=== PATIENT | female | born 1945 | race Caucasian/White ===

== ENCOUNTER 2017-10-01 11:03 | Outpatient (CLI) | payer MEDICARE | END 2017-10-01 11:04 | disposition home or self-care (01) | LOC: BICMAMMO 11:03 | PROVIDERS: ATTEND Family Medicine | DX: Z12.31 Encounter for screening mammogram for malignant neoplasm of breast (principal); Z85.89 Personal history of malignant neoplasm of other organs and systems | CPT/HCPCS: 77063; 77067 ==

== ENCOUNTER 2022-04-24 13:44 | Outpatient (CLI) | payer OTHER | END 2022-04-24 13:45 | disposition home or self-care (01) | LOC: BICMAMMO 13:44 | PROVIDERS: ATTEND Family Medicine | DX: Z12.31 Encounter for screening mammogram for malignant neoplasm of breast (principal); Z13.820 Encounter for screening for osteoporosis; M85.89 Other specified disorders of bone density and structure, multiple sites; Z78.0 Asymptomatic menopausal state; Z85.89 Personal history of malignant neoplasm of other organs and systems; Z91.89 Other specified personal risk factors, not elsewhere classified | CPT/HCPCS: 77063; 77067; 77080 ==

== ENCOUNTER 2022-06-18 10:45 | Inpatient (IN) | payer OTHER ==
[2022-06-18 12:59] LABS: #Basophils 0.1 10x3/uL (0.0-0.2); #Eosinphils 0.1 10x3/uL (0.0-0.5); #Monocytes 0.6 10x3/uL (0.0-1.1); #Neutrophils 3.6 10x3/uL (1.5-8.4); %Basophils 0.9 % (0.0-2.0); %Eosinophils 1.8 % (0.0-6.0); %Lymphocytes 42.5 % (18.0-47.0); %Monocytes 7.4 % (0.0-10.0); %Neutrophils 47.1 % (40.0-75.0); Mean Corpuscular HGB CONC 33.6 g/dL (32.0-36.0); Mean Corpuscular Hemoglobin 31.4 pg (27.0-33.0); Mean Corpuscular Volume 93.5 fl (81.6-98.3); Mean Platelet Volume 10.1 fl (7.4-10.4); Platelet Count 249 10x3/uL (150-450); Red Blood Cell (RBC) Count 4.46 10x6/uL (3.90-5.03); White Blood Cell (WBC) Count 7.7 10x3/uL (3.5-10.5)
[2022-06-18 13:25] LABS: Anion Gap 14 mmol/L (10-20); BUN (Urea Nitrogen) 10 mg/dL (9.8-20.1); Calc. Creatinine Clearance 0 mL/min (70-130); Calcium 9.2 mg/dL (7.8-10.44); Carbon Dioxide 26 mmol/L (23-31); Chloride 103 mmol/L (98-107); Estimated GFR 58; Glucose 90 mg/dL (83-110); Potassium 4.6 mmol/L (3.5-5.1); Sodium 138 mmol/L (136-145)
[2022-06-22] MEDS ORDERED: Albumin 25% 100 ML ONE (06:11)
[2022-06-22] MEDS ORDERED: fentaNYL PF 100 MCG/2 ML SYRINGE ONE (06:22)
[2022-06-22] MEDS ORDERED: Midazolam HCl 5 mg/5 ml Vial ONE (06:22)
[2022-06-22] MEDS ORDERED: niCARdipine 25 MG/10 ML VIAL ONE (06:23)
[2022-06-22] MEDS ORDERED: Phenylephrine 10 MG/ML VIAL ONE (06:23)
[2022-06-22 06:41] LABS: SARS-CoV-2 NAA Rapid Test Not Detected (NotDetected)
[2022-06-22] MEDS ORDERED: Heparin 10,000 UNITS/1 ML VIAL 30,000 UNITS in Sodium Chloride 0.9% 1,000 ML FS SCH (06:45)
[2022-06-22] MEDS ORDERED: Lidocaine 1% (PF) 30 ML VIAL ONE (06:55)
[2022-06-22] MEDS ORDERED: Dexamethasone 4 mg/ml Vial ONE (06:59)
[2022-06-22] MEDS ORDERED: Bupivacaine HCl 0.5%/Epinephrine 1:200,000/PF 30 ml Vial ONE (06:59)
[2022-06-22] MEDS ORDERED: Sodium Bicarb 50 MEQ/50 ML Abboject 8.4% SYRINGE ONE (07:15)
[2022-06-22] MEDS ORDERED: Aminocaproic Acid 5 GM/20 ML VIAL ONE (07:15)
[2022-06-22] MEDS ORDERED: Cardioplegic Soln 1,000 ML BAG ONE (07:15)
[2022-06-22] MEDS ORDERED: Lidocaine 2% PF 100 mg/5 ml Syringe ONE (07:15)
[2022-06-22] MEDS ORDERED: Mannitol 12.5 GM/50 ML ONE (07:15)
[2022-06-22] MEDS ORDERED: Heparin 5,000 UNITS/ML VIAL ONE (07:15)
[2022-06-22] MEDS ORDERED: Thrombin 5000 UNITS/5 ML VIAL ONE (07:15)
[2022-06-22] MEDS ORDERED: PHENYLEPHRINE-NS 100 MCG/ML 10 ML SYRINGE ONE ×2 (07:15→09:14)
[2022-06-22] MEDS ORDERED: Magnesium Sulfate 1 GM/2 ML VIAL ONE (07:15)
[2022-06-22] MEDS ORDERED: Papaverine 60 MG/2 ML VIAL ONE (07:15)
[2022-06-22] MEDS ORDERED: Dexamethasone 20 MG/5 ML VIAL ONE (07:15)
[2022-06-22] MEDS ORDERED: Protamine Sulfate 250 MG/25 ML VIAL ONE (07:15)
[2022-06-22] MEDS ORDERED: Esmolol 100 MG/10 ML VIAL ONE (07:15)
[2022-06-22] MEDS ORDERED: Rocuronium Bromide 10 MG/ML (10ML VIAL) ONE (07:15)
[2022-06-22] MEDS ORDERED: Calcium Chloride 1 GM/10 ML Abboject SYRINGE ONE (07:15)
[2022-06-22] MEDS ORDERED: Heparin 30,000 units/30 ml VIAL ONE (07:15)
[2022-06-22] MEDS ORDERED: PROPOFOL 200 MG/20 ML VIAL ONE (07:15)
[2022-06-22] MEDS ORDERED: Ondansetron PF 4 MG/2 ML Vial ONE (07:15)
[2022-06-22] MEDS ORDERED: CEFAZOLIN 2 GM VIAL ONE (07:16)
[2022-06-22] MEDS ORDERED: traMADol HCl 50 MG TAB PO PRN ×2 (10:57)
[2022-06-22] MEDS ORDERED: Guaifenesin DM 100-10/5 ML UDCUP PO PRN (10:57)
[2022-06-22] MEDS ORDERED: Bisacodyl 10 MG SUPP PR PRN (10:57)
[2022-06-22] MEDS ORDERED: Bisacodyl 5 MG TAB PO PRN (10:57)
[2022-06-22] MEDS ORDERED: Mag-Al 1200 mg/1200 mg/30 ML UDCUP PO PRN (10:57)
[2022-06-22] MEDS ORDERED: hydrALAZINE 20 MG/ML VIAL SLOW IVP PRN (10:57)
[2022-06-22] MEDS ORDERED: Nitroglycerin 50 MG/250 ML BOT 250 ML IVPB PRN (10:57)
[2022-06-22] MEDS ORDERED: NOREPINEPHRINE 8 MG/250 ML-D5W 250 ML IVPB PRN (10:57)
[2022-06-22] MEDS ORDERED: Acetaminophen 325 MG TAB PO PRN (10:57)
[2022-06-22] MEDS ORDERED: Potassium Chloride 20 MEQ/100 ML PREMIX BAG IVPB PRN (10:57)
[2022-06-22] MEDS ORDERED: Ondansetron PF 4 MG/2 ML Vial IVP PRN (10:57)
[2022-06-22] MEDS ORDERED: Hetastarch 6% 500 ML 500 ML IVPB PRN (10:57)
[2022-06-22] MEDS ORDERED: D5 1/2 NS w/20 mEq KCL 1,000 ML IV SCH (11:00)
[2022-06-22] MEDS ORDERED: Magnesium 2 GM/50 ML(in water) 2 GM in Premix Bag 1 BAG IVPB SCH (11:00)
[2022-06-22] MEDS ORDERED: FENTANYL 50 MCG/ML 1 ML VIAL SLOW IVP PRN ×2 (11:01)
[2022-06-22] MEDS ORDERED: Morphine 4 MG/ML VIAL SLOW IVP PRN (11:02)
[2022-06-22] MEDS ORDERED: Potassium Chloride 20 MEQ in Premix Bag 1 BAG IVPB PRN (11:06)
[2022-06-22] MEDS ORDERED: Dextrose 5% in Water 1,000 ML IV PRN (11:15)
[2022-06-22] MEDS ORDERED: Dextrose 50% Abboject 50 ML SYRINGE SLOW IVP PRN (11:15)
[2022-06-22 11:31] LABS: Actual Bicarbonate (HCO3a) 24.3 mEq/L (22-28); Base Excess (BEa) -0.3 mEq/L (-2.0 to +3.0); Carboxyhemoglobin (COHb) 0.3 gm% (0.0-3.0); O2 Tension (PaO2), arterial 175.6 mmHg (> 70.0); Potassium - ABG Lab 3.85 mmol/L (3.70-5.30); Puncture Site Arterial Line
[2022-06-22] MEDS: Insulin Regular 300 UNITS/3 ML VIAL SC PRN ×3 (11:34→20:15)
[2022-06-22] MEDS: Ketorolac Tromethamine 30 MG/ML VIAL IVP SCH ×3 (11:38→23:35)
[2022-06-22] MEDS: CEFAZOLIN 2 GM in Sodium Chloride 0.9% 100 ML IVPB SCH ×2 (11:39→18:22)
[2022-06-22 11:46] LABS: Hemoglobin 11.3 g/dL (12.0-16.0); Mean Corpuscular HGB CONC 32.1 g/dL (32.0-36.0); Mean Corpuscular Hemoglobin 32.1 pg (27.0-31.0); Mean Platelet Volume 7.8 fL (7.4-10.4); Platelet Count 148 10x3/uL (130-400); RBC Distribution Width 11.8 % (11.5-14.5); Red Blood Cell (RBC) Count 3.52 mill/uL (4.20-5.40); White Blood Cell (WBC) Count 25.9 10x3/uL (4.8-10.8)
[2022-06-22 12:04] LABS: Anion Gap 14 mmol/L (10-20); BUN (Urea Nitrogen) 11 mg/dL (9.8-20.1); Calc. Creatinine Clearance 61 mL/min (70-130); Carbon Dioxide 21 mmol/L (23-31); Chloride 109 mmol/L (98-107); Estimated GFR 68; Glucose 191 mg/dL (83-110); Potassium 4.1 mmol/L (3.5-5.1); Sodium 140 mmol/L (136-145)
[2022-06-22 12:07] LABS: INR-International Normal Ratio 1.3; Prothrombin Time 16.8 sec (12.0-14.7)
[2022-06-22 12:08] LABS: PTT 34.5 sec (22.9-36.1)
[2022-06-22 12:09] LABS: Band 16 % (5-11); Eosinophils 1 % (0-10); Lymphocytes 25 % (21-51); MDiff Complete? YES; Monocytes 4 % (0-10); Neutrophil 54 % (42-75); Platelet Morphology Comment Appears Adequate; RBC Morphology Normal
[2022-06-22 12:36] LABS: Potassium 3.9 mmol/L (3.5-5.1)
[2022-06-22 16:30] LABS: Actual Bicarbonate (HCO3a) 19.4 mEq/L (22-28); CO2 Tension 34.1 mmHg (35.0-45.0); Carboxyhemoglobin (COHb) 0.3 gm% (0.0-3.0); Hemoglobin (Hb) 12.7 g/dL (12.0-16.0); O2 Tension (PaO2), arterial 146.1 mmHg (> 70.0); Potassium - ABG Lab 3.64 mmol/L (3.70-5.30); pH, Arterial 7.37 (7.35-7.45)
[2022-06-22 16:31] LABS: ALV-art Gradient 96.475 mmHg (0-20); Puncture Site Arterial Line
[2022-06-22 16:58] LABS: Hemoglobin 12.3 g/dL (12.0-16.0)
[2022-06-22] MEDS ORDERED: Famotidine/PF 20 mg/2ml Vial SLOW IVP SCH (21:00)
[2022-06-22] MEDS: Atorvastatin Calcium 40 MG TAB PO SCH (21:06)
[2022-06-22] MEDS: Latanoprost 0.005% Ophth Soln 2.5 ml Bottle EA EYE SCH (21:07)
[2022-06-23] MEDS: CEFAZOLIN 2 GM in Sodium Chloride 0.9% 100 ML IVPB SCH (03:21)
[2022-06-23 04:56] LABS: #Basophils 0.1 thou/uL (0.0-0.2); #Monocytes 1.1 thou/uL (0.11-0.59); #Neutrophils 13.2 thou/uL (1.40-6.50); %Basophils 0.8 % (0.0-1.0); %Lymphocytes 6.6 % (21.0-51.0); %Monocytes 7.3 % (0.0-10.0); %Neutrophils 85.3 % (42.0-75.0); Hemoglobin 10.7 g/dL (12.0-16.0); Mean Corpuscular HGB CONC 32.7 g/dL (32.0-36.0); Mean Corpuscular Hemoglobin 32.5 pg (27.0-31.0); Mean Corpuscular Volume 99.4 fl (78.0-98.0); Mean Platelet Volume 8.3 fL (7.4-10.4); Platelet Count 147 10x3/uL (130-400); RBC Distribution Width 12.1 % (11.5-14.5); Red Blood Cell (RBC) Count 3.29 mill/uL (4.20-5.40); White Blood Cell (WBC) Count 15.4 10x3/uL (4.8-10.8)
[2022-06-23 05:10] LABS: Anion Gap 10 mmol/L (10-20); BUN (Urea Nitrogen) 12 mg/dL (9.8-20.1); Calc. Creatinine Clearance 59 mL/min (70-130); Calcium 8.3 mg/dL (7.8-10.44); Carbon Dioxide 23 mmol/L (23-31); Chloride 109 mmol/L (98-107); Estimated GFR 72; Glucose 131 mg/dL (83-110); Potassium 4.4 mmol/L (3.5-5.1); Sodium 138 mmol/L (136-145)
[2022-06-23] MEDS: Ketorolac Tromethamine 30 MG/ML VIAL IVP SCH ×3 (05:51→17:50)
[2022-06-23] MEDS: Magnesium 2 GM/50 ML(in water) 2 GM in Premix Bag 1 BAG IVPB SCH (08:42)
[2022-06-23] MEDS ORDERED: Aspirin 325 MG TAB PO SCH (09:00)
[2022-06-23] MEDS ORDERED: Zolpidem Tartrate 5 MG TAB PO PRN (10:52)
[2022-06-23] MEDS ORDERED: Mag-Al 1200 mg/1200 mg/30 ML UDCUP PO PRN (10:52)
[2022-06-23] MEDS ORDERED: Nitroglycerin 0.4 MG TAB (25 Tab Bottle) SL PRN (10:52)
[2022-06-23] MEDS ORDERED: Bisacodyl 5 MG TAB PO PRN (10:52)
[2022-06-23] MEDS ORDERED: Bisacodyl 10 MG SUPP PR PRN (10:52)
[2022-06-23] MEDS ORDERED: Milk Of Magnesia 30 ML UDCUP PO PRN (10:52)
[2022-06-23] MEDS ORDERED: diphenhydrAMINE 25 MG CAP PO PRN (10:52)
[2022-06-23] MEDS ORDERED: Guaifenesin DM 100-10/5 ML UDCUP PO PRN (10:52)
[2022-06-23] MEDS ORDERED: Mineral Oil ENEMA PR PRN (10:52)
[2022-06-23] MEDS: Latanoprost 0.005% Ophth Soln 2.5 ml Bottle EA EYE SCH (21:27)
[2022-06-23] MEDS: Atorvastatin Calcium 40 MG TAB PO SCH (21:28)
[2022-06-24] MEDS: Ketorolac Tromethamine 30 MG/ML VIAL IVP SCH ×4 (00:01→18:21)
[2022-06-24] MEDS: Furosemide 40 MG TAB PO SCH (09:00)
[2022-06-24] MEDS: Magnesium 2 GM/50 ML(in water) 2 GM in Premix Bag 1 BAG IVPB SCH (09:01)
[2022-06-24] MEDS: Potassium Chloride 10 MEQ TAB PO SCH (09:01)
[2022-06-24] MEDS: Metoprolol Tartrate 25 MG TAB PO SCH ×2 (09:06→21:32)
[2022-06-24 17:45] VITALS: BMI 28.7
[2022-06-24] MEDS: Atorvastatin Calcium 40 MG TAB PO SCH (21:29)
[2022-06-24] MEDS: Latanoprost 0.005% Ophth Soln 2.5 ml Bottle EA EYE SCH (21:30)
[2022-06-25] MEDS: Ketorolac Tromethamine 30 MG/ML VIAL IVP SCH ×3 (00:12→11:39)
[2022-06-25] MEDS: Furosemide 40 MG TAB PO SCH (07:53)
[2022-06-25] MEDS: Potassium Chloride 10 MEQ TAB PO SCH (07:53)
[2022-06-25] MEDS: Metoprolol Tartrate 25 MG TAB PO SCH ×2 (07:53→11:40)
[2022-06-25 11:38] VITALS: TEMP 97.9
[2022-06-25 13:23] VITALS: BP 111/53
[2022-06-26] MEDS ORDERED: Aspirin 325 MG TAB PO SCH (09:00)
[2022-06-29 13:52] LABS: Actual Bicarbonate (HCO3a) 22.1 mEq/L (22-28); Analyzer IN Cardio OR; Base Excess (BEa) -3.2 mEq/L (-2.0 to +3.0); CO2 Tension 40.6 mmHg (35.0-45.0); Calcium, Ionized (arterial) 1.09 mmol/L (1.12-1.30); Carboxyhemoglobin (COHb) 0.3 gm% (0.0-3.0); Hemoglobin (Hb) 12.6 g/dL (12.0-16.0); O2 Tension (PaO2), arterial 261.1 mmHg (> 70.0); pH, Arterial 7.35 (7.35-7.45)
[2022-06-29 13:52] LABS: Actual Bicarbonate (HCO3a) 22.2 mEq/L (22-28); Analyzer IN Cardio OR; Base Excess (BEa) -2.5 mEq/L (-2.0 to +3.0); CO2 Tension 37.8 mmHg (35.0-45.0); Calcium, Ionized (arterial) 0.97 mmol/L (1.12-1.30); Hemoglobin (Hb) 8.8 g/dL (12.0-16.0); O2 Tension (PaO2), arterial 452.2 mmHg (> 70.0); Potassium - ABG Lab 4.72 mmol/L (3.70-5.30); pH, Arterial 7.39 (7.35-7.45)
[2022-06-29 13:52] LABS: Actual Bicarbonate (HCO3a) 22.3 mEq/L (22-28); Analyzer IN Cardio OR; CO2 Tension 36.8 mmHg (35.0-45.0); Carboxyhemoglobin (COHb) 0.2 gm% (0.0-3.0); O2 Tension (PaO2), arterial 505.1 mmHg (> 70.0); Potassium - ABG Lab 3.85 mmol/L (3.70-5.30)
[2022-06-29 13:53] LABS: Actual Bicarbonate (HCO3a) 22.7 mEq/L (22-28); Analyzer IN Cardio OR; CO2 Tension 34.1 mmHg (35.0-45.0); Calcium, Ionized (arterial) 1.05 mmol/L (1.12-1.30); Carboxyhemoglobin (COHb) 0.3 gm% (0.0-3.0); Hemoglobin (Hb) 10.9 g/dL (12.0-16.0); Potassium - ABG Lab 3.83 mmol/L (3.70-5.30); pH, Arterial 7.44 (7.35-7.45)
[2022-06-29 13:53] LABS: Actual Bicarbonate (HCO3a) 20.8 mEq/L (22-28); Analyzer IN Cardio OR; Base Excess (BEa) -4.2 mEq/L (-2.0 to +3.0); CO2 Tension 37.4 mmHg (35.0-45.0); Calcium, Ionized (arterial) 1.29 mmol/L (1.12-1.30); Carboxyhemoglobin (COHb) 0.4 gm% (0.0-3.0); Hemoglobin (Hb) 8.5 g/dL (12.0-16.0); O2 Tension (PaO2), arterial 311.5 mmHg (> 70.0); pH, Arterial 7.36 (7.35-7.45)
[2022-06-29 13:54] LABS: Puncture Site Arterial Line
[2022-06-29 13:54] LABS: Puncture Site Arterial Line
[2022-06-29 13:54] LABS: Puncture Site Arterial Line
[2022-06-29 13:55] LABS: Puncture Site Arterial Line
[2022-06-29 13:55] LABS: Puncture Site Arterial Line
== END 2022-06-25 16:30 | disposition home or self-care (01) | DRG 236 ==
LOC: SURG A 06-22 05:32 → CCU 06-22 10:44 → 2NO 06-23 15:15
PROVIDERS: ADMIT Thoracic Surgery (Cardiothoracic Vascular Surgery); ATTEND Thoracic Surgery (Cardiothoracic Vascular Surgery)
PROC: 021209W Bypass Coronary Artery, Three Arteries from Aorta with Autologous Venous Tissue, Open Approach (ICD-10-PCS; principal; 2022-06-22)
PROC: 02100Z9 Bypass Coronary Artery, One Artery from Left Internal Mammary, Open Approach (ICD-10-PCS; 2022-06-22)
PROC: 06BQ4ZZ Excision of Left Saphenous Vein, Percutaneous Endoscopic Approach (ICD-10-PCS; 2022-06-22)
PROC: 5A1221Z Performance of Cardiac Output, Continuous (ICD-10-PCS; 2022-06-22)
PROC: 02L70CK Occlusion of Left Atrial Appendage with Extraluminal Device, Open Approach (ICD-10-PCS; 2022-06-22)
DX: I25.110 Atherosclerotic heart disease of native coronary artery with unstable angina pectoris (principal); Z20.822 Contact with and (suspected) exposure to COVID-19; I10 Essential (primary) hypertension; E78.5 Hyperlipidemia, unspecified; F17.290 Nicotine dependence, other tobacco product, uncomplicated; M19.90 Unspecified osteoarthritis, unspecified site; M47.816 Spondylosis without myelopathy or radiculopathy, lumbar region; F17.210 Nicotine dependence, cigarettes, uncomplicated; Z78.1 Physical restraint status; Z88.2 Allergy status to sulfonamides; Z91.09 Other allergy status, other than to drugs and biological substances; Z90.710 Acquired absence of both cervix and uterus; Z85.828 Personal history of other malignant neoplasm of skin; Z79.899 Other long term (current) drug therapy; Z79.82 Long term (current) use of aspirin; Z90.49 Acquired absence of other specified parts of digestive tract; Z98.84 Bariatric surgery status; Z82.49 Family history of ischemic heart disease and other diseases of the circulatory system; Z81.8 Family history of other mental and behavioral disorders
CPT/HCPCS: 36416; 36430; 71045; 80048; 82805; 85025; 85610; 85730; 86850; 86900; 86901; 93005; 93010; 93798; 94002; 94150; C1751; C1776; J0360; J1100; J1642; J1644; J1815; J1885; J2001; J2150; J2250; J2370; J2405; J2440; J2704; J2720; J3370; J3475; J3480; J3490; P9045; P9047; S0017; S0028; U0002

== ENCOUNTER 2022-08-02 18:57 | Inpatient (IN) | payer OTHER ==
[~2022-08-02 18:57] MED LIST: Iopamidol-370 76% 500 ML 1 ML ONE
[2022-08-02 20:13] LABS: #Lymphocytes 1.9 thou/uL (1.20-3.40); #Monocytes 0.8 thou/uL (0.11-0.59); #Neutrophils 4.5 thou/uL (1.40-6.50); %Basophils 0.6 % (0.0-1.0); %Eosinophils 0.6 % (0.0-10.0); %Lymphocytes 25.9 % (21.0-51.0); %Monocytes 10.8 % (0.0-10.0); %Neutrophils 62.2 % (42.0-75.0); Hemoglobin 11.2 g/dL (12.0-16.0); Mean Corpuscular HGB CONC 34.1 g/dL (32.0-36.0); Mean Corpuscular Hemoglobin 32.1 pg (27.0-31.0); Mean Corpuscular Volume 94.3 fl (78.0-98.0); Mean Platelet Volume 7.9 fL (7.4-10.4); Platelet Count 130 10x3/uL (130-400); RBC Distribution Width 12.1 % (11.5-14.5); Red Blood Cell (RBC) Count 3.47 mill/uL (4.20-5.40); White Blood Cell (WBC) Count 7.2 10x3/uL (4.8-10.8)
[2022-08-02 20:34] LABS: ALT (SGPT) Less than 7 U/L (8-55); AST (SGOT) 15 U/L (5-34); Albumin 3.1 g/dL (3.4-4.8); Alkaline Phosphatase 61 U/L (40-110); Anion Gap 12 mmol/L (10-20); BUN (Urea Nitrogen) 10 mg/dL (9.8-20.1); Bilirubin, Total 0.5 mg/dL (0.2-1.2); Calc. Creatinine Clearance 0 mL/min (70-130); Calcium 7.9 mg/dL (7.8-10.44); Carbon Dioxide 22 mmol/L (23-31); Chloride 106 mmol/L (98-107); Estimated GFR 67; Globulin 2.2 g/dL (2.4-3.5); Glucose 104 mg/dL (83-110); Protein, Total 5.3 g/dL (5.8-8.1); Sodium 136 mmol/L (136-145)
[2022-08-02] MEDS ORDERED: Piperacillin/Tazobactam 4.5 GM VIAL ONE (20:57)
[2022-08-02] MEDS ORDERED: Vancomycin 1.5 GRAM/300 ML BAG 1.5 GM in Premix Bag 1 BAG IVPB SCH (21:15)
[2022-08-02 21:41] LABS: Bilirubin Negative (Negative); Blood, Urine 1+ (Negative); Clarity Clear (Clear); Glucose, Urine (Dipstick) Normal (Negative); Ketone, Urine Negative (Negative); Leukocyte Negative Leu/uL (Negative); Nitrite Negative (Negative); Protein, Urine (Dipstick) Negative (Neg-Trace); Specific Gravity, Urine 1.007 (1.002-1.036); Squamous Epithelial 0-3 HPF (0-3); Urobilinogen Normal mg/dL (Less than 2); WBC/HPF None Seen HPF (0-3); pH, Urine 5.5 (5.0-9.0)
[2022-08-02 21:42] LABS: Bacteria/HPF 1+ HPF (None Seen)
[2022-08-02] MEDS ORDERED: NOREPINEPHRINE 8 MG/250 ML-D5W 250 ML ONE (22:13)
[2022-08-03] MEDS ORDERED: NOREPINEPHRINE 8 MG/250 ML-D5W 250 ML IVPB SCH (02:15)
[2022-08-03] MEDS ORDERED: Acetaminophen 325 MG TAB PO PRN (02:54)
[2022-08-03] MEDS ORDERED: Ondansetron PF 4 MG/2 ML Vial IVP PRN (02:54)
[2022-08-03] MEDS: Piperacillin/Tazobactam 3.375 GM in Sodium Chloride 0.9% 100 ML IVPB SCH ×3 (04:04→19:51)
[2022-08-03] MEDS: Sodium Chloride 0.9% 1,000 ML IV SCH ×2 (04:05→19:51)
[2022-08-03 04:58] VITALS: BMI 27.3
[2022-08-03 05:13] LABS: #Lymphocytes 1.3 thou/uL (1.20-3.40); #Monocytes 0.7 thou/uL (0.11-0.59); #Neutrophils 3.3 thou/uL (1.40-6.50); %Basophils 0.7 % (0.0-1.0); %Eosinophils 0.5 % (0.0-10.0); %Lymphocytes 24.5 % (21.0-51.0); %Monocytes 12.8 % (0.0-10.0); %Neutrophils 61.5 % (42.0-75.0); Hemoglobin 10.8 g/dL (12.0-16.0); Mean Corpuscular HGB CONC 33.4 g/dL (32.0-36.0); Mean Corpuscular Volume 95.7 fl (78.0-98.0); Mean Platelet Volume 8.2 fL (7.4-10.4); Platelet Count 122 10x3/uL (130-400); RBC Distribution Width 12.1 % (11.5-14.5); Red Blood Cell (RBC) Count 3.39 mill/uL (4.20-5.40); White Blood Cell (WBC) Count 5.3 10x3/uL (4.8-10.8)
[2022-08-03 05:34] LABS: ALT (SGPT) 7 U/L (8-55); AST (SGOT) 16 U/L (5-34); Alkaline Phosphatase 57 U/L (40-110); Anion Gap 11 mmol/L (10-20); BUN (Urea Nitrogen) 9 mg/dL (9.8-20.1); Bilirubin, Total 0.7 mg/dL (0.2-1.2); Calc. Creatinine Clearance 65 mL/min (70-130); Calcium 7.9 mg/dL (7.8-10.44); Carbon Dioxide 23 mmol/L (23-31); Chloride 109 mmol/L (98-107); Estimated GFR 73; Globulin 2.2 g/dL (2.4-3.5); Glucose 100 mg/dL (83-110); Potassium 3.7 mmol/L (3.5-5.1); Protein, Total 5.2 g/dL (5.8-8.1); Sodium 139 mmol/L (136-145)
[2022-08-03] MEDS ORDERED: Ascorbic Acid 500 mg Chewable Tablet PO SCH (09:00)
[2022-08-03] MEDS: Cholecalciferol 1,000 UNITS (25 MCG) TAB PO SCH (09:19)
[2022-08-03] MEDS: Aspirin 81 mg Enteric Coated Tablet PO SCH (09:19)
[2022-08-03] MEDS: Enoxaparin Sodium 40 MG/0.4 ML SYRINGE SC SCH (09:20)
[2022-08-03] MEDS: Famotidine 20 MG TAB PO SCH ×2 (09:20→19:51)
[2022-08-03] MEDS: Zinc Sulfate 220 MG CAP PO SCH (09:20)
[2022-08-03] MEDS: Ascorbic Acid 500 mg Chewable Tablet PO SCH (09:20)
[2022-08-03] MEDS: Atorvastatin Calcium 40 MG TAB PO SCH (19:51)
[2022-08-04] MEDS: Vancomycin 1.5 GRAM/300 ML BAG 1.5 GM in Premix Bag 1 BAG IVPB SCH (00:31)
[2022-08-04] MEDS: Piperacillin/Tazobactam 3.375 GM in Sodium Chloride 0.9% 100 ML IVPB SCH ×3 (05:35→20:14)
[2022-08-04 06:50] LABS: #Lymphocytes 2.1 thou/uL (1.20-3.40); #Monocytes 0.5 thou/uL (0.11-0.59); #Neutrophils 1.8 thou/uL (1.40-6.50); %Eosinophils 0.2 % (0.0-10.0); %Lymphocytes 47.8 % (21.0-51.0); %Monocytes 10.8 % (0.0-10.0); %Neutrophils 41.2 % (42.0-75.0); Mean Corpuscular HGB CONC 32.7 g/dL (32.0-36.0); Mean Corpuscular Hemoglobin 31.5 pg (27.0-31.0); Mean Corpuscular Volume 96.3 fl (78.0-98.0); Mean Platelet Volume 8.1 fL (7.4-10.4); Platelet Count 130 10x3/uL (130-400); RBC Distribution Width 12.1 % (11.5-14.5); White Blood Cell (WBC) Count 4.4 10x3/uL (4.8-10.8)
[2022-08-04 07:14] LABS: ALT (SGPT) 7 U/L (8-55); AST (SGOT) 19 U/L (5-34); Albumin 2.9 g/dL (3.4-4.8); Alkaline Phosphatase 54 U/L (40-110); Anion Gap 11 mmol/L (10-20); BUN (Urea Nitrogen) 7 mg/dL (9.8-20.1); Bilirubin, Total 0.5 mg/dL (0.2-1.2); Calc. Creatinine Clearance 61 mL/min (70-130); Carbon Dioxide 23 mmol/L (23-31); Chloride 105 mmol/L (98-107); Estimated GFR 68; Globulin 2.3 g/dL (2.4-3.5); Glucose 85 mg/dL (83-110); Potassium 3.6 mmol/L (3.5-5.1); Protein, Total 5.2 g/dL (5.8-8.1); Sodium 135 mmol/L (136-145)
[2022-08-04] MEDS: Cholecalciferol 1,000 UNITS (25 MCG) TAB PO SCH (08:32)
[2022-08-04] MEDS: Aspirin 81 mg Enteric Coated Tablet PO SCH (08:32)
[2022-08-04] MEDS: Enoxaparin Sodium 40 MG/0.4 ML SYRINGE SC SCH (08:32)
[2022-08-04] MEDS: Famotidine 20 MG TAB PO SCH ×2 (08:32→20:14)
[2022-08-04] MEDS: Zinc Sulfate 220 MG CAP PO SCH (08:32)
[2022-08-04] MEDS: Ascorbic Acid 500 mg Chewable Tablet PO SCH (08:32)
[2022-08-04] MEDS ORDERED: Chloraseptic Spray 180 ml Bottle PO PRN (11:08)
[2022-08-04] MEDS ORDERED: MUCINEX INSTASOOTHE SPRY (115 ML BOT) PO PRN (13:26)
[2022-08-04] MEDS: Sodium Chloride 0.9% 1,000 ML IV SCH ×2 (18:06→20:14)
[2022-08-04] MEDS: Atorvastatin Calcium 40 MG TAB PO SCH (20:14)
[2022-08-05 00:28] LABS: Vancomycin, Trough 12.6 ug/mL
[2022-08-05] MEDS: Vancomycin 1.5 GRAM/300 ML BAG 1.5 GM in Premix Bag 1 BAG IVPB SCH (01:28)
[2022-08-05] MEDS: Piperacillin/Tazobactam 3.375 GM in Sodium Chloride 0.9% 100 ML IVPB SCH ×2 (05:20→11:24)
[2022-08-05 07:27] LABS: Hemoglobin 10.9 g/dL (12.0-16.0); Mean Corpuscular HGB CONC 32.1 g/dL (32.0-36.0); Mean Corpuscular Volume 96.3 fl (78.0-98.0); Mean Platelet Volume 8.1 fL (7.4-10.4); Platelet Count 124 10x3/uL (130-400); Red Blood Cell (RBC) Count 3.51 mill/uL (4.20-5.40); White Blood Cell (WBC) Count 3.5 10x3/uL (4.8-10.8)
[2022-08-05 07:39] LABS: ALT (SGPT) 8 U/L (8-55); AST (SGOT) 22 U/L (5-34); Albumin 2.9 g/dL (3.4-4.8); Alkaline Phosphatase 54 U/L (40-110); Anion Gap 12 mmol/L (10-20); BUN (Urea Nitrogen) 6 mg/dL (9.8-20.1); Bilirubin, Total 0.4 mg/dL (0.2-1.2); Calc. Creatinine Clearance 60 mL/min (70-130); Carbon Dioxide 24 mmol/L (23-31); Chloride 109 mmol/L (98-107); Estimated GFR 68; Globulin 2.3 g/dL (2.4-3.5); Glucose 87 mg/dL (83-110); Potassium 3.9 mmol/L (3.5-5.1); Protein, Total 5.2 g/dL (5.8-8.1); Sodium 141 mmol/L (136-145)
[2022-08-05 08:40] VITALS: BP 133/70; TEMP 97.5
[2022-08-05] MEDS: Famotidine 20 MG TAB PO SCH (09:19)
[2022-08-05] MEDS: Ascorbic Acid 500 mg Chewable Tablet PO SCH (09:19)
[2022-08-05] MEDS: Cholecalciferol 1,000 UNITS (25 MCG) TAB PO SCH (09:20)
[2022-08-05] MEDS: Enoxaparin Sodium 40 MG/0.4 ML SYRINGE SC SCH (09:20)
[2022-08-05] MEDS: Zinc Sulfate 220 MG CAP PO SCH (09:20)
[2022-08-05] MEDS: Aspirin 81 mg Enteric Coated Tablet PO SCH (09:20)
[2022-08-05 10:55] LABS: Band 1 % (5-11); Lymphocytes 60 % (21-51); MDiff Complete? YES; Monocytes 10 % (0-10); Neutrophil 23 % (42-75); Platelet Morphology Comment Appears Decreased; Polychromasia SLIGHT = 2-3 cells (100X) (0-2/hpf); Reactive Lymphocytes 6 % (0-10)
[2022-08-06] MEDS ORDERED: FLU VACC QS2022-23(65YR UP)/PF 240 MCG/0.7 ML SYRINGE IM ONE (09:00)
== END 2022-08-05 12:53 | disposition home or self-care (01) | DRG 871 ==
LOC: ERS 18:57 → CCU 08-03 01:54 → T4-B 08-03 14:40
PROVIDERS: ADMIT Internal Medicine; ATTEND Internal Medicine
PROC: 3E03329 Introduction of Other Anti-infective into Peripheral Vein, Percutaneous Approach (ICD-10-PCS; principal; 2022-08-03)
PROC: 3E033XZ Introduction of Vasopressor into Peripheral Vein, Percutaneous Approach (ICD-10-PCS; 2022-08-03)
PROC: 8E0ZXY6 Isolation (ICD-10-PCS; 2022-08-03)
DX: A41.89 Other specified sepsis (principal); R65.21 Severe sepsis with septic shock; U07.1 COVID-19; E87.1 Hypo-osmolality and hyponatremia; I25.10 Atherosclerotic heart disease of native coronary artery without angina pectoris; I10 Essential (primary) hypertension; E78.5 Hyperlipidemia, unspecified; E27.8 Other specified disorders of adrenal gland; E88.09 Other disorders of plasma-protein metabolism, not elsewhere classified; Z95.1 Presence of aortocoronary bypass graft; Z90.49 Acquired absence of other specified parts of digestive tract; Z90.710 Acquired absence of both cervix and uterus; Z87.891 Personal history of nicotine dependence; Z88.2 Allergy status to sulfonamides; Z23 Encounter for immunization; Z79.82 Long term (current) use of aspirin
CPT/HCPCS: 36415; 71045; 71260; 80053; 80202; 81003; 81015; 82533; 82728; 83605; 85025; 86140; 87081; 87086; J1650; J2543; J3370; J3490; J7050; Q9967

== ENCOUNTER 2022-08-17 12:15 | Outpatient (CLI) | payer OTHER ==
[~2022-08-17 12:15] MED LIST changes: +Iopamidol 370 76% 100 ML VIAL ONE; -Iopamidol-370 76% 500 ML 1 ML ONE
== END 2022-08-17 12:16 | disposition home or self-care (01) ==
LOC: CT 12:15
PROVIDERS: ATTEND Nurse Practitioner Family
DX: E27.8 Other specified disorders of adrenal gland (principal); K86.89 Other specified diseases of pancreas
CPT/HCPCS: 74170

== ENCOUNTER 2022-10-12 08:55 | Outpatient (CLI) | payer OTHER ==
[2022-10-12] MEDS ORDERED: Magnevist 469MG/ML 20 ML VIAL ONE (09:45)
== END 2022-10-12 08:56 | disposition home or self-care (01) ==
LOC: MRI 08:55
PROVIDERS: ATTEND Family Medicine
DX: K86.89 Other specified diseases of pancreas (principal); D35.02 Benign neoplasm of left adrenal gland; K86.2 Cyst of pancreas
CPT/HCPCS: 74183; A9579

== ENCOUNTER 2024-05-22 10:48 | Outpatient (CLI) | payer OTHER | END 2024-05-22 10:49 | disposition home or self-care (01) | LOC: MRI 10:48 | PROVIDERS: ATTEND Orthopaedic Surgery Hand Surgery | DX: M48.062 Spinal stenosis, lumbar region with neurogenic claudication (principal); M43.16 Spondylolisthesis, lumbar region; M51.369 Other intervertebral disc degeneration, lumbar region without mention of lumbar back pain or lower extremity pain; M51.379 Other intervertebral disc degeneration, lumbosacral region without mention of lumbar back pain or lower extremity pain; M43.17 Spondylolisthesis, lumbosacral region; M48.07 Spinal stenosis, lumbosacral region; M47.816 Spondylosis without myelopathy or radiculopathy, lumbar region | CPT/HCPCS: 72148 ==

== ENCOUNTER 2025-05-21 10:25 | Outpatient (CLI) | payer OTHER ==
[2025-05-21 11:15] LABS: Estimated GFR - POC 58.0
== END 2025-05-21 10:26 | disposition home or self-care (01) ==
LOC: MRI 10:25
PROVIDERS: ATTEND Family Medicine
DX: Q45.3 Other congenital malformations of pancreas and pancreatic duct (principal)
CPT/HCPCS: 36415; 74183; 82565